=== PATIENT | female | born 2000 | race Caucasian/White ===

== ENCOUNTER 2021-07-06 09:56 | Outpatient (RCR) | payer OTHER, SELFPAY ==
--- NOTE | 2021-07-06 09:10 | BH.SGPN.GN ---
Behaviors/Verbalizations/Mental Status: [] Eye contact is good. Motor activity is appropriate. Appearance is casual. Speech is Appropriate. Mood is anxious. Affect is congruent. Thoughts are linear and logical. No evidence of psychosis. Reviewed daily check in sheet and no reports of suicidal ideations or intent. Client Response/Progress/Benefit: [] Pt was an active participant in group discussion on CBT techniques. Attentive. Emotion for today is anxious. Shared that this was her first day in [facility] level of care and shared that her anxiety has greatly impacted her functioning. Reports significant somatic symptoms as the result of her anxiety (nausea, vomiting) which have led to isolation and avoidance of work/school. Her goals are to reduce her anxiety. Wants to learn more effective ways to manage depression/anxiety so she can get back to functioning at baseline. No progress noted as this was pt's first day. Will continue in [facility] to increase healthy coping skills and improve functioing. Narrative Note: []
--- NOTE | 2021-07-06 10:05 | BH.SGPN.GN ---
Behaviors/Verbalizations/Mental Status: []Client alert and oriented, casually dressed and grooming appears tended to. Eye contact good. Motor activity appropriate. Speech within normal limits. Affect congruent, mood anxious. Thoughts linear, logical, no signs of hallucinations or delusions. Client Response/Progress/Benefit: []Pt new to IOP program. Did well to remain engaged throughout AEB taking notes, listening attentively, and providing input throughout. Attentive during psychoeducation and discussed the importance of goal-setting with the group. Pt indicated that goals ?help to motivate you and give toy something to do with your time?. Group identified potential benefits of having goals to include: they motivate, increase self-confidence, provide a sense of accomplishment, help improve relationships, and provide a sense of purpose. Group also worked together to identify barriers to goal-setting which included; fear of failure, lack of motivation/procrastination, depression, and lack of support from others. Pt identified personal barriers to include anxiety and fear of failure. Benefited from increased awareness of benefits and barriers to goal-setting. Pt will continue in IOP to prevent decompensation, increase healthy coping and stabilize anxiety, as well as further improve daily functioning. Narrative Note: []
--- NOTE | 2021-07-06 11:08 | BH.SGPN.GN ---
Behaviors/Verbalizations/Mental Status: []Client alert and oriented, casually dressed and groomed. Eye contact good. Motor activity appropriate. Speech within normal limits. Affect congruent, mood anxious. Thoughts linear, logical, no signs of hallucinations or delusions. Client Response/Progress/Benefit: []Pt was an active participant in group discussions and activities. Engaged in activity. Pt identified a SMART goal for the next week is to: Start each day identifying positive thoughts over the next week. Pt reported this would benefit her by improving her mood, improving motivation, and lessening her anxiety. Identified stomach ache and waking up earlier than planned as potential barriers to completing this goal. Pt able to identify several solutions, such as thought challenging, not allowing herself to dwell, and starting the day earlier, that can help overcome identified barriers. Benefited from group by being able to utilize SMART educate to create a goal. Pt to continue IOP to increase healthy coping skills, challenge distorted and negative thoughts and prevent decompensation. Narrative Note: []
--- NOTE | 2021-07-06 15:49 | BH.COMM_ITS ---
Communication Note - Communication with Client Communication Note: Met with pt to complete initial paperwork. No significant changes since pre-admission screening. Completed [facility]. Pt presents as low risk. Pt denies any active suicidal ideations, plan, or intent as of 07/06/21. Pt denies history of self-injurious or high risk behaviors. Pt denies any history of prior suicide attempts. Pt admits to having thoughts of going to slep and not waking up but denies passive SI. Denies any hx or current HI, delusions, or hallucinations. No access to weapons or other lethal means. Future oriented and reports ability to maintain safety. Does not present as imminent risk due to no active SI, plan, or intent. Case reviewed with program psychiatrist and team, agreed pt will be admitted to IOP program under the Generalized Anxiety Disorder diagnosis, F41.1
--- NOTE | 2021-07-07 09:05 | BH.SGPN.GN ---
Behaviors/Verbalizations/Mental Status: [] Eye contact is good. Motor activity is appropriate. Appearance is casual. Speech is Appropriate. Mood is anxious. Affect is congruent. Thoughts are linear and logical. No evidence of psychosis. Reviewed daily check in sheet and no reports of suicidal ideations or intent. Client Response/Progress/Benefit: [] Pt participated at times during the group discussion. Attentive. She reports mental health wins revolving around improve sleep this week. States that she actually slept until my alarm went off. Shared that in the past she would wake up hours before the alarm with significant anxiety that would result in somatic symptoms. She believes that her anxiety has improved in the past couple days for unknown reasons. Her primary stressor is financial concerns. Had a very brief check-in. Progress noted per patient report. Benefited from group support and encouragement. Will continue in IOP to prevent decompensation, decrease anxiety, and improve functioning. Narrative Note: []
--- NOTE | 2021-07-07 10:10 | BH.SGPN.GN ---
Behaviors/Verbalizations/Mental Status: [] Eye contact is good. Motor activity is appropriate. Appearance is casual. Speech is Appropriate. Mood is anxious. Affect is congruent. Thoughts are linear and logical. No evidence of psychosis. Client Response/Progress/Benefit: [] Pt was an active participant in group discussions. Attentive during psycho-education on 4 types of conflict styles (Competing, Collaborating, Avoiding, and Accommodating). Worked with group to define conflict and identify how conflict is helpful. With peers identified barriers to addressing or managing conflict which included: fear of upsetting others, embarrassing self, abandonment, past negative experiences with conflict, and shutting down. Pt believes her conflict style changes with the situation as she avoidant in relationships and competing when it comes to siblings. Benefited from group due to increase insight and awareness of conflict, conflict styles, and obstacles to managing conflict. Will continue in IOP to decrease impact of anxiety of functioning and increase healthy coping. Narrative Note: []
--- NOTE | 2021-07-08 09:00 | BH.SGPN.GN ---
Behaviors/Verbalizations/Mental Status: [] Eye contact is good. Motor activity is appropriate. Appearance is casual. Speech is Appropriate. Mood is anxious. Affect is constricted. Thoughts are linear and logical. No evidence of psychosis. Reviewed daily check in sheet and no reports of suicidal ideations or intent. Client Response/Progress/Benefit: [] Pt was an active participant in group discussion. Attentive. Provided appropriate feedback. Mental health win as sleeping until her alarm and waking up not feeling nauseas or sick. Pt stated she also woke up today not feeling sick. 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 Pt stated planning ahead helped her decrease her anxiety. Reported current stressor is high gas prices because she has to drive an hour to treatment which has been adding up. Emotion is tired. Benefited from group support, encouragement, and feedback. Will continue in IOP to improve daily functioning, increase healthy coping and prevent decompensation.
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
--- NOTE | 2021-07-08 11:08 | BH.SGPN.GN ---
Behaviors/Verbalizations/Mental Status: []Pt alert and oriented, casually dressed and groomed. Eye contact good. Motor activity appropriate. Speech within normal limits. Affect constricted, mood anxious and dysthymic. Thoughts linear, logical, no signs of hallucinations or delusions. Client Response/Progress/Benefit: []Pt responded well to session, engaged in the experiential activity and attentive throughout group processing. Pt reported fear of failure has kept pt from asking for help, school, and making new friendships. Pt completed fear of failure worksheet and was able to identify thoughts and behaviors that reinforce personal fear of failure including fear of being uncomfortable, second guessing, wanting to be the best, and social media. Pt participated in small group discussion regarding strategies to overcome fear of failure. Identified wanting to work on sticking with a schedule and thinking through solutions if her goal ?fails.? Appeared to benefit from increased knowledge of strategies to combat fear of failure and gaining self-awareness. Pt will continue IOP tx to prevent decompensation, improve daily functioning, and reduce somatic symptoms of anxiety. Narrative Note: []
[2021-07-08 11:27] VITALS: BP 124/74; PULSE 61
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
--- NOTE | 2021-07-08 12:37 | BH.DR.ITP ---
Initial Treatment Plan Patient Information Visit Information: ADMISSION DATE: EXPECTED LOS: 4-6 weeks Problems/Symptoms Problem #1:: Anxiety Symptom:: Worry, rumination, avoidance, panic attacks, numerous somatic symptoms Problem #2:: Depression Symptom:: Sadness, hopelessness, worthlessness, isolation, decreased concentration, passive thoughts of
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
--- NOTE | 2021-07-13 09:01 | BH.SGPN.GN ---
Behaviors/Verbalizations/Mental Status: [] Eye contact is good. Motor activity is appropriate. Appearance is casual. Speech is Appropriate. Mood is euthymic, slightly anxious. Affect is constricted. Thoughts are linear and logical. No evidence of psychosis. Reviewed daily check in sheet and no reports of suicidal ideations or intent. Client Response/Progress/Benefit: [] Pt was an active participant in group discussion. Attentive. Provided appropriate feedback. Pt reported mental health positive as being able to enjoy self when went with boyfriend to a birthday democrat. Pt stated additional mental health positive as randomly choosing to mow her parents yard which is the first time she's ever mowed. Pt reported she found it helpful to be outside and accomplish something. 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 Pt reported used thought challenge to help her be productive versus laying around all day. Benefited from group support, encouragement, and feedback. Will continue in IOP to continue use of healthy coping skills, challenge negative thinking and prevent decompensation.
--- NOTE | 2021-07-13 11:10 | BH.SGPN.GN ---
Behaviors/Verbalizations/Mental Status: []Client alert and oriented, casually dressed and groomed. Eye contact fair to good. Motor activity appropriate. Speech within normal limits. Affect constricted, mood anxious and depressed. Thoughts linear, logical, no signs of hallucinations or delusions. Client Response/Progress/Benefit: []Pt responded well to session AEB taking notes and providing input and examples throughout. Group discussed the different categories of coping skills which included distraction, emotional release, grounding, self-love, and thought challenging. Pt created a coping skill menu identifying various skills to try in each category. Pt?s coping skill menu included: cleaning with limits, exercising, meditation, reducing over-apologizing, and opposite action. Appeared to benefit from increasing repertoire of healthy coping skills. Pt reports enjoying time with supports this weekend which is progress. Pt will continue IOP tx to reduce anxiety, improve daily functioning and increase self-confidence. Narrative Note: []
--- NOTE | 2021-07-14 10:12 | BH.SGPN.GN ---
Behaviors/Verbalizations/Mental Status: []Client alert and oriented, casually dressed and groomed. Eye contact good. Motor activity appropriate. Speech within normal limits. Affect congruent, mood anxious. Thoughts linear, logical, no signs of hallucinations or delusions. Client Response/Progress/Benefit: []Client responded well to session AEB client listening attentively to others and taking notes. Client was engaged throughout discussion introducing the topic of self care and its importance. Group identified myths about self care, such as self care is selfish, self-indulgent, takes too much time, has to be fun, and has to be earned. Client discussed myth of self care being selfish, stating that at times we need to be selfish for our own mental health wellness. Identified reframing self-care as necessary versus selfish. Contributed ideas as group identified self-care benefits to include: improved mood, reduce stress, increased resilience, and help maintain stability. Client appeared to benefit from increased knowledge of the importance and benefits of self care. Will continue IOP treatment to increase social connection to supports and decrease feelings of hopelessness.
--- NOTE | 2021-07-14 11:20 | BH.SGPN.GN ---
Behaviors/Verbalizations/Mental Status: []Client alert and oriented, casually dressed and groomed. Eye contact good. Motor activity appropriate. Speech within normal limits. Affect congruent, mood anxious. Thoughts linear, logical, no signs of hallucinations or delusions. Client Response/Progress/Benefit: []Client engaged participant AEB completing self-assessment worksheet and contributing input during discussion. Participated throughout group discussion on the various areas of self-care, benefits, and types of self-care activities for each area. Client completed worksheet which identified current self-care practices and what self-care activities client wants to start using. Client selected emotional and spiritual self-care as areas to begin practicing more consistently. Client plans to do this by getting into more consistent journaling, opening up to supports about her mood, as well as practicing self-validation. Client reports doing well with financial self-care and would like to continue to focus on maintaining self-care in this area by consistently checking her account balances. Appeared to benefit from completing the self-care evaluation and gaining insights into current self-care practices, as well as identifying areas in which she would like to improve upon. Will continue IOP tx to continue to promote mood stability, improve depression and anxiety management and consistent skill application, as well as prevent decompensation. Narrative Note: []
--- NOTE | 2021-07-15 09:00 | BH.SGPN.GN ---
Behaviors/Verbalizations/Mental Status: []Pt alert and oriented, casually dressed and groomed. Eye contact good. Motor activity appropriate. Speech within normal limits. Affect congruent, mood euthymic. Thoughts linear, logical, no signs of hallucinations or delusions. Reviewed pt?s symptom tracker, no risk for suicidal ideation, plan, or intent as of 07/15/21 Client Response/Progress/Benefit: P[]Pt responded well to session, attentive and providing emotional support. Pt reports feeling hopeful this morning as pt has noticed she has been nauseous, but not as bad and pt has been able to gt through her nausea more effectively. Pt shared she work up sick, but pt was able to use opposite action and positive self-talk to prevent vomiting. Pt got pulled over yesterday after leaving IOP which was a positive and a stressor per pt's report. Pt stated she was able to use the stressor to motivate pt to make positive choices the rest of the day. Appeared to benefit from reflecting on application of coping skills. Pt will continue IOP tx to promote mood stability, reduce somatic symptoms, and increase overall functioning. Narrative Note: []
--- NOTE | 2021-07-15 09:00 | BH.COMM ---
Communication Note - Communication with Client Communication Note: Pt requested not to meet with program psychiatrist for follow-up while in IOP as she is linked with outpatient psychiatrist and does not feel the need to have two psychiatrists. We will respect her wishes.
--- NOTE | 2021-07-15 11:10 | BH.SGPN.GN ---
Behaviors/Verbalizations/Mental Status: [] Eye contact is good. Motor activity is appropriate. Appearance is casual. Speech is Appropriate. Mood is euthymic. Affect is full. Thoughts are linear and logical. No evidence of psychosis Client Response/Progress/Benefit: [] Pt participated at times during group discussions. Attentive during psychoeducation on the 4 A's of Coping with Stress (Avoid, Alter, Adapt, Accept). Participated in experiential activity in which group members had to utilize stress management skills in the moment. Pt agreed with group consensus that activity caused her to be frustrated, tense, and anxious. She shared skills that she utilized in the moment to continue with group activity. Pt identified a stressor to focus on which was waking up on time in the mornings and choose to utilize alter as a coping skills. Plans to alter her night time routine to get better sleep. Benefited from processing in the moment stress management strategies and identifying new ways to cope with stress. Will continue in IOP to prevent decompensation, increase health coping skills to manage anxiety, and to improve functioing. Narrative Note: []
--- NOTE | 2021-07-15 14:01 | BH.MDN ---
Multi-Disciplinary Note - Note 45-min Individual Time Started:: 12:05 Date: 07/15/21 Purpose of session/treatment goals addressed:: To work on goal #1 of pt's treatment plan. Focusing on triggers for health related anxiety. Eye Contact:: Good Motor Activity:: Appropriate Appearance:: Casual Speech:: Appropriate Mood:: Anxious, Dysthymic Affect:: Congruent Thoughts:: Linear, Logical, No evidence of hallucinations/delusions noted Staff Interventions:: thought challenging, psychoeducation on: - health anxiety, CBT techniques, other - gave pt a worksheet for homework. Client Response:: Pt responded well to session, open to meeting with therapist. Pt shared yesterday she woke up sick, but pushed herself to come to IOP anyway. 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 Pt laughed and shared this was actually a good thing because it helped pt break the cycle. Pt connected with the discussion of health anxiety and shared I have to have that because they run tests and never find anything. Pt reports this is frustrating for her because it results in answer seeking and negative self-talk. Pt connected with the health anxiety worksheets and identified her internal and external triggers. Triggers included: shaking when cold, cramps, loneliness, stomach aches, worrying about not making it to the bathroom, noses her boyfriend makes, plans getting cancelled, and learning about other people's medical diagnoses. Pt stated she feels more ready to work on breaking the cycle of anxiety by changing behaviors first. Pt recognizes her negative thought patterns will be harder to change. Pt given a worksheet for homework to identify her safety/avoidance behaviors. Risks/Concerns:: Pt denies any active suicidal ideations, plan, or intent as of 07/15/21. Pt is future oriented and has multiple protective factors. Progress Toward Goals/Plan:: Pt is responding well to IOP tx and reports benefitting from the group setting. Pt is showing mild progress as it is still early in pt's treatment. Pt has increased insight to her triggers and maintenance cycles. Pt continues to experience severe anxiety, somatic symptoms, avoidance, and anxious thought patterns. Pt reports she is focusing on using more opposite action which is progress. Pt will continue IOP tx to prevent decompensation, reduce avoidance, and improve daily functioning impaired by anxiety. Time Stopped:: 12:48
--- NOTE | 2021-07-21 09:00 | BH.SGPN.GN ---
Behaviors/Verbalizations/Mental Status: [] Eye contact is good. Motor activity is appropriate. Appearance is casual. Speech is Appropriate. Mood is depressed. Affect is flat. Thoughts are linear and logical. No evidence of psychosis. Reviewed daily check in sheet and no reports of suicidal ideations or intent. Client Response/Progress/Benefit: [] Pt participated at times during the group discussions. Attentive. Tearful at times. Shared with the group anxiety and somatic symptoms over the weekend which has led to ruminations and fear. She is fearful that her anxiety will return to the severity it had been resulting in increased nausea and vomiting. Difficulty not focusing on negative automatic thoughts which is increasing anxiety and depression. Group empathized and provided feedback which was beneficial. Group was able to reframe her thoughts and challenge her cognitive distortions. Normalized her anxiety response and provided alternative thoughts to combat her negative thoughts. Pt reports regression. Will continue in IOP to prevent decompensation, increase healthy coping skills, and improve functioning. Narrative Note: []
--- NOTE | 2021-07-21 11:15 | BH.SGPN.GN ---
Behaviors/Verbalizations/Mental Status: []Client alert and oriented, casually dressed and groomed. Eye contact good. Motor activity appropriate. Speech within normal limits. Affect congruent, mood euthymic. Thoughts linear, logical, no signs of hallucinations or delusions. Client Response/Progress/Benefit: []Client responded well to session, attentive. Did well to process activity and work with group to relate the strategies used to overcome barriers in the activity to managing change in own life. Client identified a change they would like to make is eating more consistently throughout the day. Client stated currently in preparation stage for identified change. Client reported goal si to have small snack with her each day to have when her alarm goes off to remind her to eat. Appeared to benefit from identifying a small goal to work towards. Client will continue IOP tx to prevent decompensation, gain healthy coping skills, and improve daily functioning.
--- NOTE | 2021-07-21 11:24 | BH.MDN_ITS ---
Multi-Disciplinary Note - Note 45-min Individual Time Started:: 10:20 Date: 07/21/21 Purpose of session/treatment goals addressed:: To work on goal #1 of pt's tx plan. To increase self-awareness and identify tangible goals. Eye Contact:: Good Motor Activity:: Appropriate Appearance:: Casual Speech:: Soft Mood:: Anxious Affect:: Congruent Thoughts:: Linear, Logical, No evidence of hallucinations/delusions noted Staff Interventions:: thought challenging, CBT techniques, mindfulness skills, strengths perspective, goal setting - goal to not research physical symptoms for the next three days Client Response:: Pt responded well to session, open to meeting with therapist. Pt processed stressors from the weekend which included a very stressful day of babysitting, a setback with getting sick, and ruminating about these. Pt rec eptive to gentle thought challenging and discussion of self-compassion. Pt acknowledged that she personalizes situations that are out of her control which reinforces rumination. Pt able to reflect on her recent episode of sickness with a more compassionate lens and remind herself that she did have more good moments than usual this weekend. Pt completed homework from last session. Pt identified her safety behaviors that reinforce health anxiety which included: avoiding eating, avoiding certain foods, avoidance of certain places and going out, googling and researching symptoms, and avoiding certain friends. Pt recognizes that her avoidance is due to fear that she will get sick or not be able to make it to a restroom. Pt willing to work on a goal to reduce reassurance seeking through not googling for the next three days. Pt also set a goal to eat at least one snack a day as pt is currently only eating once which is likely contributing to her nausea. Pt set an alarm to remind herself to eat a snack today and pt plans to bring her own snacks to IOP. Risks/Concerns:: Pt denies any suicidal ideations, plan, or intent as of 07/21/21. Pt is future oriented and motivated. Progress Toward Goals/Plan:: Pt continues to respond well to IOP tx AEB consistent attendance and engagement. Pt reports working on goals outside of IOP setting. Pt reported getting sick one day over the weekend which pt is ruminating about, however progress noted in reduced frequency of vomiting. Pt also reports improved ability to bounce back from this. Pt continues to be receptive to learning about her health anxiety, safety behaviors, and thoughts. Pt will continue IOP tx to promote mood stability, reduce safety behaviors, and improve daily functioning. Time Stopped:: 11:10
== END 2021-07-21 23:59 ==
LOC: BHIOP 09:56
PROVIDERS: Referring Provider Psychiatry & Neurology Psychiatry; Visit Provider Psychiatry & Neurology Psychiatry
DX: F33.2 Major depressive disorder, recurrent severe without psychotic features (principal); F41.1 Generalized anxiety disorder; F45.1 Undifferentiated somatoform disorder; F12.99 Cannabis use, unspecified with unspecified cannabis-induced disorder; Z79.899 Other long term (current) drug therapy
CPT/HCPCS: S9480; 90832; 90834; 90853

== ENCOUNTER 2021-07-22 07:25 | Outpatient (RCR) | payer OTHER, SELFPAY ==
[2021-07-22 01:16] VITALS: BP 124/74; PULSE 61
--- NOTE | 2021-07-22 10:13 | BH.SGPN.GN ---
Behaviors/Verbalizations/Mental Status: []Client alert and oriented, casually dressed and groomed. Eye contact good. Motor activity appropriate. Speech within normal limits. Affect congruent, mood anxious and euthymic. Thoughts linear, logical, no signs of hallucinations or delusions. Client Response/Progress/Benefit: []Client responded well to session AEB sharing and listening attentively to others. Client participated in activity illustrating how perspective affects mental health. Client participated in group discussion on what shapes our perspective, contributing past experiences and other?s opinions as examples. Client appeared connected to psychoeducation on how our thoughts and attitude can become ?lenses? that we see the world through. Participated in group discussion reviewing how these lenses affect mental health treatment, stating that a negative perspective could cause someone to not try as hard in treatment. Shared her current perspective as positive or more ?balanced? and that this has aided in improving her ability to feel overall more in control of her mental health and ability to manage current sx. Client appeared to benefit from increased knowledge of perspective and how mental health can impact or be impacted by one?s perspective. Will continue IOP treatment to improve anxiety management skills, reduce safety behaviors, and improve overall mood stability. Narrative Note: []
--- NOTE | 2021-07-22 11:15 | BH.SGPN.GN ---
Behaviors/Verbalizations/Mental Status: []Pt alert and oriented, casually dressed and groomed. Eye contact good. Motor activity appropriate. Speech within normal limits. Affect congruent, mood euthymic and anxious. Thoughts linear, logical, no signs of hallucinations or delusions. Client Response/Progress/Benefit: []Pt was attentive and contributed in small and larger group discussion. Pt completed strengths exploration worksheet and identified personal strengths to include: leadership, social awareness, intelligence, humor, and ambition. Pt shared that working to recognize these personal strengths more consistently will help improve pt?s mood and increase self-worth. Shared wanting to focus on fostering personal strengths by reminding herself of her strengths through her actions. Also identified barriers for acknowledging and using strengths. Benefited from identifying personal strengths and strategies for enhancing use of identified strengths. Pt to continue IOP tx to reduce somatic symptoms, increase anxiety-management skills, and improve overall functioning. Narrative Note: []
--- NOTE | 2021-07-23 09:05 | BH.SGPN.GN ---
Behaviors/Verbalizations/Mental Status: []Pt alert and oriented, casually dressed and groomed. Eye contact good. Motor activity appropriate. Speech within normal limits. Affect constricted, mood euthymic. Thoughts linear, logical, no signs of hallucinations or delusions. Reviewed pt?s symptom tracker, no risk for suicidal ideation, plan, or intent as of 07/23/21 Client Response/Progress/Benefit: [] Pt responded well to session, providing supportive statements. Pt reports feeling optimistic this morning as pt has been feeling less nauseous and has increased ability to manage her anxiety. Pt is looking forward to spending time with her boyfriend this weekend. 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 Pt appeared to benefit from giving support to peers and reflecting on her progress. Pt will continue IOP tx to further decrease anxiety symptoms, improve distress tolerance, and increase self-compassion. Narrative Note: []
--- NOTE | 2021-07-23 10:20 | BH.SGPN.GN ---
Behaviors/Verbalizations/Mental Status: []Pt alert and oriented, casually dressed and groomed. Eye contact good. Motor activity appropriate. Speech within normal limits. Affect congruent, mood euthymic. Thoughts linear, logical, no signs of hallucinations or delusions. Client Response/Progress/Benefit: [] Pt responded well to session AEB contributing to discussion, taking notes, and listening attentively to others. Group discussed the benefits of managed anger and anger as a secondary emotion. Pt completed anger iceberg worksheet, reporting outward personal signs of anger as sarcasm, sleeping, and lashing out. Identified underlying emotions that contribute to anger including change, lack of sleep, and feeling overwhelmed. Appeared to benefit from increased knowledge of the underlying emotions that impact anger and increased self-awareness of the internal and external consequences of anger. Will continue IOP tx to prevent decompensation, continue to improve anxiety management, as well as increase the use of healthy coping skills and thought challenging. Narrative Note: []
--- NOTE | 2021-07-27 10:10 | BH.SGPN.GN ---
Behaviors/Verbalizations/Mental Status: []Eye contact is good. Motor activity is appropriate. Appearance is casual and grooming tended to. Speech is Appropriate. Mood is anxious and euthymic. Affect is constricted. Thoughts are linear and logical. No evidence of psychosis Client Response/Progress/Benefit: []Pt receptive of session, actively engaged throughout AEB taking notes and providing input and examples to discussion. Appeared to connect with group topic of cognitive distortions and the impact of thought patterns on mental health, coping behaviors, and relationships. Reflected that she personally tends to struggle with distortions of mental filtering, personalizing, and catastrophizing. Pt reports when she has distorted thinking pt becomes discouraged and only looks at what she did not do. Pt appeared to benefit from gaining insight on distorted thinking patterns and how this impacts overall mental health. Progress noted in pt report of improved insight and ability to combat distortions with alternative positive thoughts. Will continue IOP tx to further improve mood stability, reduce anxiety and avoidance, and increase self-confidence. Narrative Note: []
--- NOTE | 2021-07-28 09:00 | BH.SGPN.GN ---
Behaviors/Verbalizations/Mental Status: [] Client alert and oriented, casually dressed and groomed. Eye contact good. Motor activity appropriate. Speech within normal limits. Affect constricted, mood anxious. Thoughts linear, logical, no signs of hallucinations or delusions. Reviewed client?s symptom tracker, no risk for suicidal ideation, plan, or intent as of 07/28/21 Client Response/Progress/Benefit: [] Client responded well to group by actively participating throughout group. Reported that her emotions were irritated and tired. Client gave examples that she felt increased stress from babysitting, but felt it was an overall win with being able to control herself and not let her anger take over. Client indicated how she is finding it difficult to relax at the end of the day with lacking self car until going to bed. Client seemed to benefit from feedback from group members on techniques to invoke relaxation.She will continue IOP tx to increase coping skills, reduced irritability, and increase overall functioning. Narrative Note: []
--- NOTE | 2021-07-28 14:30 | BH.MDN ---
Multi-Disciplinary Note - Note 45-min Individual Time Started:: 12:15 Date: 07/28/21 Purpose of session/treatment goals addressed:: To review progress made in IOP tx, address current stressors, and review new strategies to cope with health anxiety. Eye Contact:: Good Motor Activity:: Appropriate Appearance:: Casual Speech:: Appropriate Mood:: Euthymic Affect:: Congruent Thoughts:: Linear, Logical, No evidence of hallucinations/delusions noted Staff Interventions:: thought challenging, CBT techniques, strengths perspective, reviewed DSM-5, goal setting - goals related to reducing safety behaviors., other - Reviewed health rules and assumptions that reinforce health anxiety and helped pt identify new rules. Client Response:: Pt responded well to session, reports feeling better overall. 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 Pt self-reports utilizing coping skills outside of IOP and pt has been consistent with completing her homework. Pt receptive to learning about health rules today and pt identified her existing rules. Pt's current rules are any stomach ache is not normal, any aliment is something bad, and I must be symptom free to be healthy. Pt recognizes these lead to hyperfocusing on body, catastrophizing, and avoidance. Pt created more flexible health rules she wants to work on believing. Pt also set goals for herself to do something out of the house with her boyfriend once a week, talk to her friends at least once a week, and reduce one of her safety behaviors. Pt reported last week she wanted to engage in reassurance seeking by researching, but pt stopped herself which is progress. Risks/Concerns:: Pt denies any suicidal ideations, plan, or intent as of 07/28/21. Pt denies any HI. Progress Toward Goals/Plan:: Pt is progressing well in IOP AEB her reduced DSM-5 scores for anxiety, depression, and overall. Pt self-reports feeling less anxiety for a shorter period of time, less vomiting, improved outlook, less avoidance, and catching negative thinking. Pt is worried about maintenance and fears leaving IOP tx. Pt is also stressed about figuring out her next steps in life. Pt continues to endorse ruminations, some somatic symptoms, safety behaviors, and moderate depressive and anxiety symptoms. Pt will continue IOP tx to promote gains, further decrease health anxiety and safety behaviors, and improve overall functioning. Time Stopped:: 12:55
--- NOTE | 2021-07-28 14:37 | BH.TPR ---
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 Pt contributes well during individual sessions and actively contributes during group sessions. Pt applies coping skills outside of IOP and reports overall mood is improved and pt is doing better at managing somatic symptoms. Status of Current Problems and Symptoms: Pt's symptoms are still present, but resolving. Pt's overall DSM-5 scores have decreased by 26% since admission, but pt is still scoring moderate/ borderline severe for anxiety and depression. Pt expresses worries about maintenance and pt continues to struggle managing her health anxiety at times. Pt's main stressor right now is figuring out what she wants to do after IOP (school, work, etc). Pt also continues to smoke marijuana daily, however, pt does not report marijuana exacerbates symptoms. Problem #1 Problem Name:: health anxiety, somatic symptoms, and ruminations Status of Goals:: Objective 1-complete with ongoing work encouraged. Pt can identify triggers for anxiety and somatic symptoms. Pt reports reduced nausea and vomiting as well as increase ability to manage triggers. Pt is responding well to the health-anxiety techniques pt learns in session. Pt's DSM-5 scores for anxiety decreased by 33% since admission. Objective 2- in progress. Pt is currently working on creating new health ?rules? or assumptions. Pt has developed more flexible health ?rules? and is trying to implement these. Team Recommendations:: Treatment team recommends that pt continue working on implementing healthy coping skills on a consistent basis to promote gains. It is also recommended that pt continue working on reducing safety behaviors. Problem #2 Problem Name:: depression, lack of motivation, passive thoughts of Status of Goals:: Objective 1-complete with ongoing work encouraged. Pt?s DSM-5 scores for depression decreased by 29% since admission. Pt can identify healthy coping skills including opposite action, thought challenging, and self-care. Objective 2- in progress. Pt is gaining more awareness of cognitive distortions and the messages she tells herself. Working on reframing personalization and increasing self-compassion. Team Recommendations:: Treatment team recommends pt continue working on combatting distortions such as personalization and disqualifying the positives. Also encourage pt to continue working on self-compassion to help pt figure out her next steps in life.
--- NOTE | 2021-07-29 10:13 | BH.SGPN.GN ---
Behaviors/Verbalizations/Mental Status: []Eye contact is good. Motor activity is appropriate. Appearance is casual. Speech is Appropriate. Mood is anxious and euthymic. Affect is congruent. Thoughts are linear and logical. No evidence of psychosis. Client Response/Progress/Benefit: []Pt connected with topic of Anxiety and participated throughout, providing input and taking notes. Attentive during psychoeducation on different anxiety disorders and participated throughout interactive discussion defining anxiety and identifying cognitive and physiological symptoms of anxiety. Pt stated ?anxiety can seem like a bad thing even if it isn?t always?. Common cognitive symptoms identified by group included: ?what if thoughts?, ?fear of failure?, and predicting the future type thoughts. Physiological symptoms reported by patient included: nausea, tingling, and headache. Benefited from increased awareness and insight on anxiety and its impact. Plan is to continue in IOP to maintain mood stability, increase consistency of healthy coping for anxiety, and prevent decompensation. Narrative Note: []
--- NOTE | 2021-07-30 09:00 | BH.SGPN.GN ---
Behaviors/Verbalizations/Mental Status: []Pt alert and oriented, neatly dressed and groomed. Eye contact good. Motor activity appropriate. Speech within normal limits. Affect constricted, mood tired but optimistic. Thoughts linear, logical, no signs of hallucinations or delusions. Reviewed pt?s symptom tracker, no risk for suicidal ideation, plan, or intent as of 07/30/21 Client Response/Progress/Benefit: []Pt responded well to session, offering supportive feedback. Pt reports feeling optimistic and also sad this morning as pt has been doing well, but recently pt reflected on her decision to withdraw from [employer] which made pt feel disappointed. Pt receptive to feedback from banking officer and peers. 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 Pt reported by setting these boundaries, pt was able to engage in much needed self-care yesterday. Pt's stressor today is I still don't know what to do after this...like with school. Pt appeared to benefit from reflecting on boundary setting and receiving support. Pt will continue IOP tx to promote gains, further decrease anxiety, and increase self-confidence. Narrative Note: []
--- NOTE | 2021-08-03 09:00 | BH.SGPN.GN ---
Behaviors/Verbalizations/Mental Status: []Pt alert and oriented, casually dressed and groomed. Eye contact good. Motor activity appropriate. Speech within normal limits. Affect congruent, mood anxious and relieved. Thoughts linear, logical, no signs of hallucinations or delusions. Reviewed pt?s symptom tracker, no risk for suicidal ideation, plan, or intent as of 08/03/21 Client Response/Progress/Benefit: [] Pt responded well to session, providing supportive statements. Pt reports feeling anxious and relieved this morning as pt had a scare with a speeding ticket, but it is resolved now. Pt shared in the past she would have gotten sick and isolated due to the anxiety of the situation, but now pt is able to handle her anxiety. Pt stated she has been more social in general which has improved her mood and reduced intrusive thoughts about getting sick. Pt's stressor today is that she does not know what she wants to do regarding choosing a college. Pt appeared to benefit from group support and feedback. Will continue IOP tx to promote gains, further reduce anxiety, and increase self-confidence. Narrative Note: []
--- NOTE | 2021-08-03 10:00 | BH.SGPN.GN ---
Behaviors/Verbalizations/Mental Status: [] Eye contact is good. Motor activity is appropriate. Appearance is casual. Speech is Appropriate. Mood is euthymic. Affect is full. Thoughts are linear and logical. No evidence of psychosis. Client Response/Progress/Benefit: [] Pt was an active participant during interactive group discussions. Attentive during psychoeducation on the six types of boundaries (physical, emotional, intellectual, sexual, time, and material) AEB note-taking. Along with peers contributed to interactive discussion on defining what a boundary is in mental health. Pt along with peers identified challenges to setting boundaries which included; fear of other's response, guilt, fear of rejection, fear of disappointing the other person, feeling like one is unworthy to set boundaries, etc. Pt along with peers identified the benefits to setting boundaries such as increased control, decreased stress, increased time for self-care, and increased confidence. Group discussed the mental health benefits to establishing boundaries at work, school, and home. Pt benefited from increased awareness and insight on the importance/benefit to setting health boundaries. Will continue in IOP to prevent decompensation, improve functioning, and increase healthy coping. Narrative Note: []
--- NOTE | 2021-08-03 11:05 | BH.SGPN.GN ---
Behaviors/Verbalizations/Mental Status: []Client alert and oriented, casually dressed and appropriately groomed. Eye contact good. Motor activity WNL.? Speech within normal limits. Affect congruent, mood anxious and euthymic. Thoughts linear and intact. no signs of delusions or hallucinations. Client Response/Progress/Benefit: []Client responded well to session AEB listening attentively to peers, providing input and examples, as well as taking notes throughout. Client contributed throughout psychoeducation on different boundary setting styles. Reports connecting most with rigid style of boundary setting, identifying difficulties letting others in or communicating when she is upset. Participated in small group discussion brainstorming various strategies for improving healthy boundary setting. Client reports wanting to begin using skill of ?being more assertive about her needs and not trying to over explain when needing to say ?no? to something to improve overall ability to establish and maintain healthy boundaries. Seemed to benefit from increased awareness of how different boundary styles can impact mental health. Will continue IOP tx to increase consistent application of skills, increase anxiety management, and prevent decompensation. Narrative Note: []
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
--- NOTE | 2021-08-05 10:10 | BH.SGPN.GN ---
Behaviors/Verbalizations/Mental Status: []Pt alert and oriented, casually dressed and groomed. Eye contact good. Motor activity appropriate. Speech within normal limits. Affect constricted, mood dysthymic. Thoughts linear, logical, no signs of hallucinations or delusions. Client Response/Progress/Benefit: []Pt engaged during session AEB Pt contributing thoughts throughout discussion and completing worksheet. Connected with discussion on crisis and how coping with external crises by using unhealthy coping skills could result in a personal crisis. Group reflected on the importance of having awareness of personal warning signs to prevent reaching crisis point. Group identified potential warning signs for crisis and Pt completed the personal warning signs worksheet. Pt identified personal crisis warning signs to include: isolation, avoidance, and apathy. Pt benefited by increasing awareness of what leads to crisis and personal warning signs. Pt will continue IOP tx to improve management of health anxiety, promote gains, and further decrease safety behaviors. Narrative Note: []
--- NOTE | 2021-08-06 09:00 | BH.SGPN.GN ---
Behaviors/Verbalizations/Mental Status: []Pt alert and oriented, casually dressed and groomed. Eye contact good. Motor activity appropriate. Speech within normal limits. Affect constricted, mood overwhelmed. Thoughts linear, logical, no signs of hallucinations or delusions. Reviewed pt?s symptom tracker, no risk for suicidal ideation, plan, or intent as of 08/06/21 Client Response/Progress/Benefit: [] pt responded well to session, receptive to feedback from peers. Pt reports feeling overwhelmed this morning as pt officially has left [employer] and feels sad and anxious about this and what is next. Pt will meet with individual therapist today and talk about this more. Pt shared she has been improving with advocating for herself and utilizing self-care. Pt also has not gotten sick for over a week and her somatic symptoms have significantly reduced. Pt appeared to benefit from group support and feedback. Pt will continue IOP tx to promote resilience, increase self-compassion, and reduce anxious thinking patterns. Narrative Note: []
--- NOTE | 2021-08-07 14:37 | BH.MDN_ITS ---
Multi-Disciplinary Note - Note 45-min Individual Time Started:: 11:30 Date: 08/06/21 Purpose of session/treatment goals addressed:: To reduce anxiety about pt's future through cost/benefit analysis and problem-solving solutions. Eye Contact:: Good Motor Activity:: Appropriate Appearance:: Casual Speech:: Soft Mood:: Anxious, Dysthymic Affect:: Congruent - tearful Thoughts:: Racing, No evidence of hallucinations/delusions noted Staff Interventions:: thought challenging, CBT techniques, strengths perspective, goal setting - Pt given homework to identify three schools she might want to attend by next session., other - provided emotional support and validation. Client Response:: Pt responded well to session, open to meeting with therapist. Pt became tearful and shared she is tired and feels overwhelmed by figuring out what is next in her life. Pt has officially withdrawn from [employer] and is trying to figure out if she wants to find a new school or take a semester off. Pt receptive to processing her emotions and emotional support. Pt came up with possible options such as going to a local school, taking time off, going to a school near her boyfriend, or moving out but taking time off from school. Pt shared multiple anxious thoughts she has about all the options. Pt receptive to thought challenging and reminding self of personal strengths. Pt's homework is to identify three schools she would be interested in attending. Risks/Concerns:: Pt denies any suicidal ideations, plan, or intent as of 08/06/21. No thoughts of . Progress Toward Goals/Plan:: Pt reports feeling down today, but pt's depression and anxiety are still improved from admission. Pt is tearful today and reports urges to isolate, but pt has been using healthy coping skills. Pt is currently processing the emotions associated with leaving her college and figuring out a new path in life. Pt denies any vomiting and has been able to cope with her somatic symptoms. Pt continues to experience racing, anxious thoughts and avoidance behaviors. Pt will continue IOP tx to promote use of healthy coping skills, reduce avoidance and anxiety, and improve self-confidence. Time Stopped:: 12:10
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
--- NOTE | 2021-08-10 11:05 | BH.SGPN.GN ---
Behaviors/Verbalizations/Mental Status: []Pt alert and oriented, neatly dressed and groomed. Eye contact good. Motor activity appropriate. Speech within normal limits. Affect constricted, mood dysthymic. Thoughts linear, logical, no signs of hallucinations or delusions. Client Response/Progress/Benefit: []Pt responded well to session AEB listening to group discussion and completing the resilience worksheet provided. Pt participated in the discussion of how each resiliency component can help increase personal resiliency. Pt identifying doing well with the resilience components of making connections, self-awareness, and moving toward her goals. Reflected on wanting to improve in the personal resilience component of nurturing a positive view of self. Pt stated she wants to work on this by starting an accomplishment log to acknowledge her progress. Pt seemed to benefit from discussing strategies for improving personal resilience. Will continue IOP tx to challenge negative self-talk, reduce avoidance, and increase self-compassion. Narrative Note: []
--- NOTE | 2021-08-11 09:08 | BH.SGPN.GN ---
Behaviors/Verbalizations/Mental Status: []Pt alert and oriented, neatly dressed and groomed. Eye contact good. Motor activity appropriate. Speech within normal limits. Affect constricted, mood hopeful. Thoughts linear, logical, no signs of hallucinations or delusions. Reviewed pt?s symptom tracker, no risk for suicidal ideation, plan, or intent as of 08/11/21 Client Response/Progress/Benefit: [] Pt responded well to session, attentive and providing supportive statements. Pt reports feeling hopeful this morning and pt reflected on her ability to bounce back from her stressors yesterday and over the weekend. 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 Pt also reflected on how her response to stressors has positively changed over the past two months. Pt continues to report reduced somatic symptoms and has not been getting sick when anxious. Pt also has been using healthy coping skills consistently. Pt appeared to benefit from reflecting on this. Pt's stressor today is that she needs to stop avoiding figuring out her next steps, but pt is anxious to fail again. Group normalized this and pt responded well. Pt will continue IOP tx to promote emotional regulation skills, combat distortions, and increase self-confidence. Narrative Note: []
--- NOTE | 2021-08-11 10:10 | BH.SGPN.GN ---
Behaviors/Verbalizations/Mental Status: []Eye contact is good. Motor activity is appropriate. Appearance is congruent. Speech is Appropriate. Mood is euthymic. Affect is full. Thoughts are linear and logical. No evidence of psychosis. Client Response/Progress/Benefit: []Pt was an active participant in group discussion and activity. Attentive during psychoeducation on social stigma vs self-stigma. Pt was actively involved in interactive discussion on the question of What impacts how we define and view ourselves? Pt along with peers were able to identify several aspects that impact how we view ourselves which include: society, past experiences, upbringing, guilt over past actions, shame, what we tell ourselves, and actions. Pt reported internal stigma is keeping her from finding a new college because she is afraid she will fail again. Stated mental health kept her from finishing school last time so having a hard time challenging negative thoughts she will fail again. Benefited from increased awareness of how mental health stigma can impact individuals and treatment. Plan is to continue in IOP to increase positive thinking, challenge distorted thoughts and prevent decompensation.
--- NOTE | 2021-08-13 09:00 | BH.SGPN.GN ---
Behaviors/Verbalizations/Mental Status: []Pt alert and oriented, casually dressed and groomed. Eye contact good. Motor activity appropriate. Speech within normal limits. Affect congruent, mood euthymic. Thoughts linear, logical, no signs of hallucinations or delusions. Reviewed pt?s symptom tracker, no risk for suicidal ideation, plan, or intent as of 08/13/21 Client Response/Progress/Benefit: [] Pt responded well to session, attentive and engaged. Pt reports feeling excited this morning as pt plans to spend time with a friend this evening and they are going to go out for dinner. Pt reflected on the progress she has made with her health anxiety as pt would have avoided going out to eat two months ago for fear of getting sick. Pt shared overall she is more confident in her ability to manage anxiety and she has been able to eat more. Pt's stressor is that she has to go to [employer] soon to get the rest of her things, but pt feels more confident than she did in the past. Pt appeared to benefit from reflecting on her progress. Pt will continue IOP tx to promote gains and further reduce anxiety symptoms. Narrative Note: []
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
--- NOTE | 2021-08-17 09:05 | BH.SGPN.GN ---
Behaviors/Verbalizations/Mental Status: [] Eye contact is good. Motor activity is appropriate. Appearance is casual. Speech is Appropriate. Mood is euthymic. Affect is full. Thoughts are linear and logical. No evidence of psychosis. Reviewed daily check in sheet and no reports of suicidal ideations or intent. Client Response/Progress/Benefit: [] Pt participated at times during the group discussions. Attentive. Provided appropriate feedback. Daily symptom tracker notes 03/28 for anxiety. Emotion for today is optimistic. Mental health wins include I completed a goals that I set with therapist which was to spend time with friends. She reports that she went out to dinner with a friend over the weekend. Discussed the mental health benefits of this and why this was set as a goal. Another mental health win included self-care in which she spent time watching movies with her family. Her check-in was minimal however reports that her anxiety continues to improve and she is feeling better. Progress noted per pt report. Benefited from group support and encouragement. Will continue in IOP to maintain gains and prevent decompensation. Narrative Note: []
--- NOTE | 2021-08-17 10:10 | BH.SGPN.GN ---
Behaviors/Verbalizations/Mental Status: []Client alert and oriented, casually dressed and groomed. Eye contact good. Motor activity appropriate. Speech within normal limits. Affect congruent, mood anxious, euthymic. Thoughts linear, logical, no signs of hallucinations or delusions. Client Response/Progress/Benefit: []Client responded well to session AEB taking notes. Participated in discussion of things that can keep people feeling trapped or stuck in life including; avoidance, unhealthy coping, isolation, inconsistent boundaries, and surrounding self with toxic people. Shared connecting with social anxiety and family struggles. Group discussed the connection between thoughts, emotions, and behaviors as well as how negative thinking can keep a person stuck. Client attentive during psychoeducation on maintenance cycles. Client able to identify negative thoughts that have kept client stuck which included ?Something bad will happen? Appeared to benefit from gaining awareness of how negative thoughts reinforce mental health symptoms and keep people stuck. Will continue IOP tx to prevent decompensation, increase anxiety management skills, and continue to combat distortions to improve overall functioning.
--- NOTE | 2021-08-17 11:15 | BH.SGPN.GN ---
Behaviors/Verbalizations/Mental Status: [] Client alert and oriented, casually dressed and groomed. Eye contact good. Motor activity appropriate. Speech within normal limits. Affect constricted, mood euthymic and anxious. Thoughts linear, logical, no signs of hallucinations or delusions. Client Response/Progress/Benefit: []Client responded well to session, contributing to discussion and providing supportive feedback. Client identified a negative thought that has kept her stuck that contributed to her presneing anxiety of fearing of failing. Client reported when she thinks this way she becomes scaredand isolate. Client worked to reframe the thought by finding more rational, realistic ways to look at the thoughts and then processed within group setting. Client reframed the thought to ?I cand do it. Client stated she will use positive self-talk to continue challenging negative self-talk. Client appeared to benefit from practicing challenging negative thinking. Client will continue IOP tx to promote use of healthy coping skills that will improve overall functioning. Narrative Note: []
--- NOTE | 2021-08-18 09:05 | BH.SGPN.GN ---
Behaviors/Verbalizations/Mental Status: [] Eye contact is good. Motor activity is appropriate. Appearance is casual. Speech is Appropriate. Mood is anxious/depressed. Affect is full. Thoughts are linear and logical. No evidence of psychosis. Reviewed daily check in sheet and no reports of suicidal ideations or intent. Client Response/Progress/Benefit: [] Pt participated at times during the group discussion. Attentive. Daily symptom tracker notes 04/25 for anxiety. Mental health win was completed self-care yesterday and going to bed early. She was tearful at times when discussing her anxiety stating I'm still feeling the anxiety when thinking about upcoming triggers and stressors such as returning to her college and trying perhaps re-enrolling in college. This triggers memories of her significant distress and she is fearful she will regress to that point again. She also talked at length regarding an upcoming camping trip with her BF's family. Everyone is drinking and their is pressure for me to drink. She does not wish to drink because it makes me sick and being sick makes me anxious. This anxiety and physial symptoms can last days after she drinks and she gave examples. Group provided some feedback and suggestions for discussing desire to remain sober to others and then provided support for her decision to make a healthy choice for herself. In the past she gave into the pressure to drink and felt miserable for several days. Progress noted per pt report. Will continue in IOP to maintain gains, prevent decompensation, and increase health coping skills. Narrative Note: []
--- NOTE | 2021-08-18 10:10 | BH.SGPN.GN ---
Behaviors/Verbalizations/Mental Status: []Pt alert and oriented, neatly dressed and groomed. Eye contact good. Motor activity appropriate. Speech within normal limits. Affect congruent, mood euthymic. Thoughts linear, logical, no signs of hallucinations or delusions. Client Response/Progress/Benefit: []Pt was an engaged participant AEB pt listening attentively to others. Attentive during psychoeducation on communication styles. Assisted group with identifying barriers of effective communication which included: ?dropping hints,? texting, assumptions, yelling, and hurtful language. Pt identified they most often use passive-aggressive communication. Pt reports being passive-aggressive impacts pt by increasing anxiety, negative thinking, and feeling frustrated with her supports. Benefited from increased awareness of different communication barriers, styles, and the importance of communicating effectively to improve mental wellness. Will continue IOP tx to improve communication with supports, further reduce anxiety, and increase self-confidence. Narrative Note: []
--- NOTE | 2021-08-20 09:05 | BH.SGPN.GN ---
Behaviors/Verbalizations/Mental Status: [] Eye contact is good. Motor activity is appropriate. Appearance is casual. Speech is Appropriate. Mood is euthymic. Affect is full. Thoughts are linear and logical. No evidence of psychosis. Reviewed daily check in sheet and no reports of suicidal ideations or intent. Client Response/Progress/Benefit: [] Pt was an active participant in group discussion. Attentive. Pt shared that she had been very anxious and ruminating on upcoming camping trip. This had led to somatic symptoms I started to feel nasuea which began to trigger thoughts that she was regressing back to how she was prior to IOP. My anxiety was causing me to convince myself I was getting sick. She was fearful that if she did not address this her symptoms would continue to decompensation. After talking with support she realized If camping is something I hate and causes anxiety I don't have to go. Assertively communicated with her BF who was understaging and she agreed to go to the event however only stay a few hours and not overnight. Her anxiety has since decreased and she does not feel ill. Proud of herself for being assertive and proactive. Normalized anxiety related to events that she did not enjoy. Progress noted per pt report. Benefited from group support, encouragement, and feedback. Will continue in IOP to prevent decompensation and maintain gains. Narrative Note: []
--- NOTE | 2021-08-20 10:20 | BH.SGPN.GN ---
Behaviors/Verbalizations/Mental Status: []Pt alert and oriented, casually dressed and groomed. Eye contact good. Motor activity appropriate. Speech within normal limits. Affect congruent, mood euthymic. Thoughts linear, logical, no signs of hallucinations or delusions. Client Response/Progress/Benefit: []Pt was an active participant in group discussion. Group worked together to identify benefits of healthy relationships which include; improves mental health, encouragement, motivation, accountability, validation, connection, someone to share experiences with, and personal growth. Group identified factors that lead to unhealthy relationships which included; co-dependence, lack of personal exploration, gaslighting, and blaming. Actively participated in group experiential activity and expressed her ideas to group. Benefited from increased insight and awareness of benefits of healthy relationships and factors that contribute to unhealthy relationships. Will continue in IOP to promote gains, further decrease anxiety, and increase confidence.? Narrative Note: []
--- NOTE | 2021-08-20 14:31 | BH.MDN_ITS ---
Multi-Disciplinary Note - Note 30-min Individual Time Started:: 11:30 Date: 08/20/21 Purpose of session/treatment goals addressed:: To address current stressors, symptoms, and application of coping skills. Another goal was to discuss aftercare options and pt's plan for the future. Eye Contact:: Good Motor Activity:: Appropriate Appearance:: Casual Speech:: Appropriate Mood:: Euthymic Affect:: Congruent Thoughts:: Linear, Logical, No evidence of hallucinations/delusions noted Staff Interventions:: thought challenging, CBT techniques, mindfulness skills, discharge planning, strengths perspective, goal setting Client Response:: Pt responded well to session, open to meeting with therapist. Pt shared she feels very relieved today after making the decision to not stay the night at a campground with her boyfriend and his family this weekend. Pt stated she asked herself if this was her anxiety wanting to cancel or just pt wanting to cancel. Pt recognized it was not because of anxiety and was able to set a healthy boundary. Pt also officially withdrew from [employer] which pt had been avoiding. Pt is still choosing between going to [employer] in the fall or taking a semester off. Pt acknowledged that whatever she decides to do, pt will have the ability to cope. Pt has been writing down her accomplishments and using opposite action. Pt is anxious about leaving IOP tx but feels that once a week counseling and aftercare group will be enough. Discussed coping skills pt can continue using to help with decision making that is not promoted by anxiety. Pt feels ready to discharge from [facility] next week. Risks/Concerns:: Pt denies any suicidal ideations, plan, or intent as of 08/20/21. No thoughts of . Progress Toward Goals/Plan:: Pt continues to demonstrate progress towards her individual goal AEB pt's report of withdrawing officially from [employer], setting boundaries with her boyfriend, and consistent report of managing her somatic symptoms. Pt reports overall feeling more confident in her abilities, reduced avoidance, and improved mood. Pt continues to worry about what choices she should make for the future, but this is not outside of normal development. Pt has not been sick for several weeks and when did get sick, it only lasted for a few hours. Pt will continue IOP tx for one more week to establish aftercare plan, reinforce healthy coping skills, and help pt transition to outpatient counseling. Time Stopped:: 11:50
== END 2021-08-20 23:59 ==
LOC: BHIOP 07:25
PROVIDERS: Referring Provider Psychiatry & Neurology Psychiatry; Visit Provider Psychiatry & Neurology Psychiatry
DX: F33.2 Major depressive disorder, recurrent severe without psychotic features (principal); F41.1 Generalized anxiety disorder; F45.1 Undifferentiated somatoform disorder; F12.99 Cannabis use, unspecified with unspecified cannabis-induced disorder; Z79.899 Other long term (current) drug therapy
CPT/HCPCS: S9480; 90832; 90834; 90853

== ENCOUNTER 2021-08-21 07:24 | Outpatient (RCR) | payer OTHER, SELFPAY ==
[2021-08-21 00:42] VITALS: BP 124/74; PULSE 61
--- NOTE | 2021-08-27 09:05 | BH.SGPN.GN ---
Behaviors/Verbalizations/Mental Status: [] Eye contact is good. Motor activity is appropriate. Appearance is casual. Speech is pressured. Mood is euthymic. Affect is full. Thoughts are linear and logical. No evidence of psychosis. Reviewed daily check in sheet and no reports of suicidal ideations or intent. Client Response/Progress/Benefit: [] Pt was an active participant in group discussion. Attentive. Provided appropriate feedback. Mental health win was I got sick and I didn't let it hold me back. Pt reports that in the recent past if she felt ill or had any somatic symptoms her anxiety would escalate and lead to panic, rumination, isolation, and feeling ill for self days. States my thoughts would shut me down. She shared that she had eaten something which upset her stomach, however was able to challenge her thoughts, identify that she was catastrophizing, and then utilize skills to manage her thoughts. She also managed to tackle an anxiety trigger by driving to [place] and packing up some of her belongings. Briefly discussed how her being back in that city and house was triggering for her. She has plans for her future however is nervous about being discharged from [facility] this week. Progress noted per pt report. Benefited from group support, encouragement, and feedback. Will continue in [facility] to maintain gains. Narrative Note: []
--- NOTE | 2021-08-27 10:20 | BH.SGPN.GN ---
Behaviors/Verbalizations/Mental Status: [] Eye contact is good. Motor activity is appropriate. Appearance is casual. Speech is Appropriate. Mood is euthymic. Affect is full. Thoughts are linear and logical. No evidence of psychosis. Client Response/Progress/Benefit: [] Pt was an active participant in group discussion. Attentive during psychoeducation on Problem-Solving in the Moment Protocol. Participated in group experiential activity. Pt provided feedback during interactive group discussion in which pt and peers worked through an example of a problem (Managing Anxiety) in which they identified a goal (minimizing anxiety) and identified barriers. Barriers identified included lack of awareness, mental health stigma, distorted thinking, not having the tools/resources, and being afraid to fail. During the experiential activity pt worked with peers to problem solve using the Problem Solving in the Moment Protocol. Group was able to complete the activity and pt was able to practice in the moment problem-solving and make connections between problem-solving for activity and in real-life situations. Increased awareness of problem-solving strategies. Will continue in IOP to maintain gains, prevent decompensation, and decrease impact of anxiety on functioning. Narrative Note: []
--- NOTE | 2021-08-27 11:20 | BH.SGPN.GN ---
Behaviors/Verbalizations/Mental Status: []Pt alert and oriented, casual dress, hygiene tended to. Eye contact good. Motor activity WNL. Speech appropriate rate and tone. Affect congruent, mood anxious and euthymic. Thoughts linear, logical, no signs of hallucinations or delusions. Client Response/Progress/Benefit: []?Pt engaged in session as evidenced by pt listening to others and providing input throughout. Pt practiced in the activity and expressed feeling frustration and anxious, but pt was able to cope by listening and problem-solving with peers. Pt identified a goal pt wants to work on which is to figure out if pt wants to take a break or return to school. Pt?s barriers included being afraid to ?mess up? again and fear of feeling alone. Pt also identified steps she could take such as exploring [employer] training and looking up alternative options. Pt seemed to benefit from learning about problem solving method and rehearsing problem-solving skills in the moment. Pt to discharge from [facility] tx tomorrow as pt has made significant progress but pt can benefit from one more day to reinforce healthy coping skills and provide closure. Narrative Note: []
--- NOTE | 2021-08-28 08:41 | BH.AFTERPLAN ---
Aftercare Plan - Demographics Treatment End Date:: 08/28/21 Psychiatrist:: Yeimy Mendiola Psychiatrist Office #:: [phone] [facility] Therapist:: Charline Redmond Therapist Phone #:: [phone] - Plan Details Progress/Aftercare Plan Details:: Jaylin has made significant strides since starting IOP as shown by her improved mood, reduced physical symptoms, and increased ability to sit with uncomfortable feelings to manage anxiety. When Jaylin started IOP she was experiencing significant anxiety and was struggling to overcome the physical symptoms with her anxiety. Jaylin was struggling with anxious, health-related thoughts, avoidance, negative thinking, depression, and physical issues. Now, Jaylin can catch and manage thoughts that reinforced anxiety and physical illness, use healthy coping skills more easily, and she feels more confident in her abilities. Jaylin has been able to get back to eating regularly, spend time with supports and go out, and face challenges she had been avoiding. Jaylin was highly active in both group and individual therapy sessions. Jaylin contributed to group discussions, offered emotional support to peers, and consistently followed through with her goals. In individual sessions, Jaylin was receptive to feedback, consistent with homework, and willing to push herself despite anxiety. Jaylin?s high motivation, willingness to be uncomfortable, and joyful personality were likely the reason for her significant progress. Jaylin plans to attend [facility] aftercare as well as follow up with her outpatient providers. Strategies for Success:: 1. Opposite action! Continue to break that cycle of anxiety and depression by getting up and getting going. 2. Remember that thoughts are thoughts NOT facts! You have power in if you give thoughts the time of day or not. 3. self-care! You deserve to take time for you and you also deserve to face the not so fun self-care 4. Self-compassion! You are human and you will make mistake?BUT that doesn?t mean you are a failure or not good enough. Give yourself credit for all the wonderful things you do. 5. Unplug! Get in nature and practice that mindfulness. 6. Practicing deep breathing, calming self-talk, and meditation 7. Practice positive self-talk and keep track of your wins. 8. Remember progress isn?t linear! You may have a setback or bump in the road, but that doesn?t mean you?ve lost all progress. 9. Slow down. Be aware and use opposite action to push yourself to slow the pace when you feel a sense of urgency. 10. Continue to practice assertive communication. - Appointments Appointments/Referrals to Other Services:: 1. Dr. Molina for medication management. 2. [facility] for individual therapy. 3. IOP aftercare starting 09/10/21 - Medications Home Medications: Home Medications clonazepam 0.5 mg tablet (Klonopin) 0.25 mg PO BID 07/08/21 gabapentin 100 mg capsule 200 mg PO DAILY 07/08/21 hydroxyzine HCl 10 mg tablet 20 mg PO BID 07/08/21 hydroxyzine HCl 50 mg tablet 50 mg PO BID 07/08/21 melatonin 5 mg capsule 5 mg PO QHS PRN PRN Insomnia 07/08/21
--- NOTE | 2021-08-28 09:05 | BH.SGPN.GN ---
Behaviors/Verbalizations/Mental Status: [] Eye contact is good. Motor activity is appropriate. Appearance is casual. Speech is Appropriate. Mood is euthymic. Affect is full. Thoughts are linear and logical. No evidence of psychosis. Reviewed daily check in sheet and no reports of suicidal ideations or intent. Client Response/Progress/Benefit: [] Pt was an active participant in group discussion. Attentive. Provided appropriate feedback. Daily symptom trackers noted no significant distress. Pt shared with the group that today is her last day in the IOP program. Discussed her progress stating my anxiety is not causing so much distress in my life. When I started I had no coping skills and wasn't functioning as a person. She shared with the group her struggles prior to entering [facility] and her current functioning. Insight that she still has work to do but is happy about her progress. She has plans to return to [employer] this weekend to finish packing her belongings to bring back to her parent's house. She briefly shared how [place] is a significant trigger for her and reminds her of being in significant emotional and physical distress. Progress noted per pt report. Plan is to discharge from [facility] today. Narrative Note: []
--- NOTE | 2021-08-28 10:15 | BH.SGPN.GN ---
Behaviors/Verbalizations/Mental Status: []Eye contact is good. Motor activity is appropriate. Appearance is casual. Speech is Appropriate. Mood is euthymic. Affect is congruent. Thoughts are linear and logical. No evidence of psychosis. Client Response/Progress/Benefit: []Pt was an active participant in group discussion and activity. Attentive during psychoeducation on the stages of change. Pt participated in interactive discussion on emotions associated with change (happy, anxious, proud, shocked, surprised, guilty, etc). Pt along with peers identified barriers that may prevent one from making change such as ?fear of regression? and fear of failure. Pt shared how she had to overcome these fears to come to [facility] and she is thankful she did. Group able to identify the benefits to changes such as acceptance, patience, self-awareness, and personal growth. Benefited from increased awareness of emotions related to change, the change process, and benefits/barriers to change. Will discharge from IOP tx today as pt has accomplished treatment goals and no longer meets criteria for IOP level of care. Narrative Note: []
--- NOTE | 2021-08-28 15:07 | BH.MDN ---
Multi-Disciplinary Note - Note 30-min Individual Time Started:: 11:15 Date: 08/28/21 Purpose of session/treatment goals addressed:: To address current stressors and discuss strategies to help cope with these stressors. Another goal was to discuss discharge and aftercare. Eye Contact:: Good Motor Activity:: Appropriate Appearance:: Casual Speech:: Appropriate Mood:: Euthymic Affect:: Congruent Thoughts:: Linear, Logical, No evidence of hallucinations/delusions noted Staff Interventions:: thought challenging, discharge planning, strengths perspective Client Response:: Pt responded well to session, open to meeting with therapist. Pt reports feeling ready to discharge, but pt is nervous and sad to be leaving. Pt reflected on her progress and shared she has been able to regularly eat, does not catastrophize when she gets nauseous anymore, go back to [facility] to get her things, and spend time with friends out in public. Pt stated she very rarely gets sick now and when she does, it only lasts a few hours rather than days. Pt also has improved in setting boundaries, advocating for herself, and using thought challenging skills. Pt reports feeling anxious that her outpatient therapist only wants to be once a month because I'm doing so well. Encouraged pt to express these feelings with therapist and advocate for twice a month. Pt reviewed healthy coping skills and pt plans to attend [facility] aftercare. Risks/Concerns:: Pt denies any suicidal ideations, plan, or intent. No thoughts of . Progress Toward Goals/Plan:: Pt will discharge from IOP tx today as pt has made significant progress and accomplished her tx goals. Pt's DSM-5 scores decreased by 68% since admission and pt reports very rarely getting sick from anxiety now. Pt has been able to return to her normal functioning, eating regularly, and spending time with friends instead of isolating. Time Stopped:: 11:31
--- NOTE | 2021-08-28 15:08 | BH.DS_ITS ---
Discharge Summary - Demographics Date of Admission:: 07/06/21 Discharge Date: 08/28/21 Presenting Problems at Admission:: Pt is a 20-year-old female with a history of ANA and MDD. Pt was referred to IOP by her outpatient providers at [place] [id number] due to worsening anxiety and depressive symptoms that have been impacting pt's functioning. Pt had to return home from college at [employer] due to mental health symptoms. Pt primarily reported somatic symptoms such as nausea and vomiting due to anxiety and panic. Pt also endorsed poor sleep, reduced concentration, and pt wakes up in the morning with somatic symptoms. Pt reported missing weeks of class due to her symptoms and shared she does better when she is around her boyfriend. Pt has had multiple doctors visits and tests with no diagnosis for physical symptoms. Pt endorsed hopelessness, helplessness, anhedonia, crying spe lls, rumination, and passive thoughts of due to her anxiety symptoms. Pt reported her anxiety was worse in the mornings and this often led to isolation for fear that she will get sick out in public. Pt admits to frequent marijuana use, but pt denies this makes her vomiting worse. Pt's symptoms were impacting her overall functioning at admission. Discharge Diagnoses:: Major depressive disorder, recurrent, severe without psychosis F 33.2; Generalized anxiety disorder; Somatic symptom disorder, persistent (F45.1); Marijuana use disorder Reason for Discharge:: Pt has accomplished her tx goals AEB her overall symptom reduction and self-report of improved mood, functioning, and reduced somatic symptoms. Pt no longer meets criteria for IOP level of care and will continue with outpatient counseling. - Treatment Progress During Treatment & Response: Pt has made significant strides since starting IOP as shown by her improved mood, reduced physical symptoms, and increased ability to sit with uncomfortable feelings to manage anxiety. When Pt started IOP she was experiencing significant anxiety and was struggling to overcome the physical symptoms with her anxiety. Pt was struggling with anxious, health-related thoughts, avoidance, negative thinking, depression, and physical issues. Now, Pt can catch and manage thoughts that reinforced anxiety and physical illness, use healthy coping skills more easily, and she feels more confident in her abilities. Pt has been able to get back to eating regularly, spend time with supports and go out, and face challenges she had been avoiding. Pt was highly active in both group and individual therapy sessions. Pt contributed to group discussions, offered emotional support to peers, and consistently followed through with her goals. Pt?s overall DSM-5 scores decreased by 68%, depression decreased by 50%, and anxiety decreased by 67%. Issues Still to be Addressed:: ongoing anxiety management to maintain gains, self-confidence, negative self-talk, and distress tolerance skills. Discharge Recommendations/Instructions:: Pt will follow up with Dr. Molina at [place] [address] for medication management. Pt's next appointment is 09/17/21. Pt also sees Di Meza at [place] [address] for individual therapy and pt's next appointment is in September. Pt will start IOP aftercare on 09/10/21 Discharge Handout: Complete Discharge Handout with client on aftercare options and continuity of care.
== END 2021-08-28 12:35 | disposition home or self-care (01) ==
LOC: BHIOP 07:24
PROVIDERS: Referring Provider Psychiatry & Neurology Psychiatry; Visit Provider Psychiatry & Neurology Psychiatry
DX: F33.2 Major depressive disorder, recurrent severe without psychotic features (principal); F41.1 Generalized anxiety disorder; F45.1 Undifferentiated somatoform disorder; F12.99 Cannabis use, unspecified with unspecified cannabis-induced disorder; Z79.899 Other long term (current) drug therapy
CPT/HCPCS: S9480; 90832; 90853

== ENCOUNTER 2021-09-10 08:00 | Outpatient (RCR) | payer OTHER, SELFPAY ==
--- NOTE | 2021-09-10 10:55 | BH.MTP ---
[facility] Treatment Plan - Patient Information Program Physician:: Dr. Yeimy Mendiola Primary Therapist:: Charline LEWIS - Psychiatric Diagnoses Psychiatric Diagnoses:: Major depressive disorder, recurrent, severe without psychosis F 33.2; Generalized anxiety disorder; Somatic symptom disorder, persistent (F45.1); Marijuana use disorder Diagnosis Code(s):: F 33.2; F45.1 - Estimated LOS Estimated LOS (in weeks):: 8 Problem/Goal #1 - Problem/Goal #1 Stated Goal:: client will maintain or see a reduction in symptoms AEB client score on the DSM 5 cross-cutting measure and improve client's daily functioning. - Objectives Objective #1 Stated Objective: Client will continue to consistently apply healthy coping skills to maintain progress made in IOP tx. Interventions: Through group therapy, client will review warning signs and triggers as well as healthy coping skills learned in IOP tx to successfully maintain gains while transitioning into outpatient therapy. Discharge Criteria: Client will have accomplished this goal when client's score on the DSM-5 cross-cutting measure has maintained or reduced over a 8 week period. Target Date: 11/05/21 Review Date: 10/08/21 Status: open Objective #2 Stated Objective: Client will learn and utilize 2-3 maintenance strategies to prevent decompensation from original IOP DSM-5 scores. Interventions: Through group therapy, client will be provided with education on healthy maintenance behaviors, relapse prevention techniques, and healthy coping strategies. Discharge Criteria: Client will have accomplished this goal when can report using at least 2 maintenance skills to prevent decompensation compared to original IOP DSM-5 scores Target Date: 11/05/21 Review Date: 10/08/21 Status: open
--- NOTE | 2021-09-10 14:00 | BH.SGPN.GN ---
Behaviors/Verbalizations/Mental Status: []Pt alert and oriented, casually dressed and groomed. Eye contact good. Motor activity appropriate. Speech within normal limits. Affect congruent. Mood anxious. Thoughts linear, logical, no signs of hallucinations or delusions. Client Response/Progress/Benefit: []Pt responded well to session, attentive and engaged. Pt reports she did not have appointments this week with her therapist or psychiatrist. Pt has been taking her medications consistently. Pt reports she has been using coping skills such as journaling, thought challenging, and sitting with the uncomfortable to help cope with her recent anxiety symptoms. Pt responded well to the discussion of gratitude and the benefits to mental health and relationships. Pt wrote herself a letter to express internal gratitude and pt identified different things to focus on each day for the next 7 days to practice gratitude towards self and others. 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 Pt recommended ongoing IOP aftercare to promote gains made in IOP and reinforce healthy coping skills. Narrative Note: []
--- NOTE | 2021-09-10 14:00 | BH.COMM ---
Communication Note - Communication with Client Communication Note: Pt presented to start weekly aftercare program. Recently completed IOP level of care. Consulted with Dr. Orozco with plan to admit to aftercare with dx of F33.2
--- NOTE | 2021-09-17 14:00 | BH.SGPN.GN ---
Behaviors/Verbalizations/Mental Status: []Client alert and oriented, casually dressed and groomed. Eye contact good. Motor activity appropriate. Speech within normal limits. Affect congruent, mood euthymic. Thoughts linear, logical, no signs of hallucinations or delusions. Client Response/Progress/Benefit: []Client responded well to session AEB sharing thoughts and feelings and providing feedback throughout. Client stated she will see psychiatry next week and is taking medications consistently. Client reported randomly while babysitting she threw up out of nowhere. Client stated she has had increase of being worried she is going to get sick because its been more frequent lately. Client reported using opposite action and thought challenge as skills/strategies to help herself manage anxious thoughts. Client stated she did homework from last week of identifying daily gratitude which she found to be helpful. Contributed to strategies for improving effective creation and application of believable personal affirmations. Client wrote down three affirmation statements she will say to herself everyday and evaluate effectiveness next week at aftercare group. Client to continue aftercare group to promote gains and further increase application of healthy coping skills.
== END 2021-09-20 23:59 ==
LOC: BHOG 08:00
PROVIDERS: Referring Provider Psychiatry & Neurology Psychiatry; Visit Provider Psychiatry & Neurology Psychiatry
DX: F33.2 Major depressive disorder, recurrent severe without psychotic features (principal)
CPT/HCPCS: 90853

== ENCOUNTER 2021-09-21 07:40 | Outpatient (RCR) | payer OTHER, SELFPAY ==
--- NOTE | 2021-09-24 14:00 | BH.SGPN.GN ---
Behaviors/Verbalizations/Mental Status: []Client alert and oriented, casually dressed and groomed. Eye contact good. Motor activity appropriate. Speech within normal limits. Affect congruent. Mood euthymic. Thoughts linear, logical, no signs of hallucinations or delusions. Client Response/Progress/Benefit: []Client responded well to session AEB listening attentively to others and contributing to discussion at times. Client reported has been following through with seeing outpatient providers and taking medications. Client reported used thought challenge over last week when felt sick. Stated she did not get sick in last week. Client attentive and engaged in discussion about personal values. Client worked with group to identify benefits of knowing personal values and how mental health can negatively be impacted when actions are not congruent with personal values. Client identified her top three personal values include: physical wellbeing, family/friends, and mental health. Able to identify several activities can engage in to meet those identified values. Client seemed to benefit from increased awareness of personal values and identifying steps can take to ensure actions are meeting her values. Client to continue aftercare to maintain gains and prevent decompensation.
--- NOTE | 2021-10-01 14:00 | BH.SGPN.GN ---
Behaviors/Verbalizations/Mental Status: []Pt alert and oriented, casually dressed and groomed. Eye contact good. Motor activity appropriate. Speech within normal limits. Affect constricted-tearful, mood anxious and frustrated. Thoughts linear, logical, no signs of hallucinations or delusions. Client Response/Progress/Benefit: [] Pt receptive of session, engaged throughout. Pt shared she has been taking her meds, she recently saw her psychiatrist, and she has been journaling. Pt has been trying to find a new therapist who will see her more than every other month, but pt is not having any luck. Pt became tearful and the group offered her support and ideas.?Receptive of discussion on sitting with the uncomfortable and emotional urges. Pt contributed to the discussion of distress tolerance and how building distress tolerance can help improve mood stability and resilience. Pt selected advocating for herself again about getting a new therapist and calling a new agency as the situation that would make pt uncomfortable. Pt will use self-talk to help do this. Pt seemed to benefit from support from peers and increasing understanding of distress tolerance. Will continue IOP aftercare group to maintain gains and reinforce healthy coping skills.? Narrative Note: []
--- NOTE | 2021-10-01 16:48 | BH.TPR ---
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 Pt uses IOP aftercare to process current stressors and is receptive to feedback. Status of Current Problems and Symptoms: Ongoing stressors include babysitting, trying to get a new therapist, and trying to maintain progress. Symptoms of anxiety and depression are present, but less severe than they were when pt started IOP. Pt was tearful today as pt is trying to advocate for herself, but she is not getting the help she is seeking. Pt is also self-reporting increase in smoking marijuana which could impact pt's mood stability. Problem #1 Problem Name:: Pt will maintain or see a reduction in sx Status of Goals:: Obj 1 complete with ongoing work encouraged- Pt has been able to maintain gains made in IOP as pt?s DSM-5 scores are 45% lower than they were at IOP admission. Based on pt's self-report she has been struggling with irritability this past week, but she continues to think positively and work on her skills. Obj 2 - complete with ongoing work encouraged. Pt has been consistently reporting using self-talk, journaling, and advocating for herself. Team Recommendations:: Recommended client continue IOP aftercare group in addition to attending regular outpatient counseling in order to maintain gains.
--- NOTE | 2021-10-15 14:00 | BH.SGPN.GN ---
Behaviors/Verbalizations/Mental Status: []Pt alert and oriented, casually dressed. Eye contact good. Motor activity appropriate. Speech within normal limits. Affect constricted at times but also smiling, mood anxious and sad. Thoughts linear, logical, no signs of hallucinations or delusions. Client Response/Progress/Benefit: []Pt responded well to session, engaged and providing emotional support. Pt checked in using aftercare worksheet and pt reports they have been following up with psychiatry, taking her medications as prescribed, and started with a new therapist today. Pt was tearful and shared this time of year is really hard for pt because everyone around me is going back to school and growing and I'm not. Pt receptive to emotional support and validation from group and pt able to see ways she can challenge negative self-talk and expectations. Pt has been using coping skills such as thought challenging and reaching out to healthy supports. Pt participated in the discussion of self-love and how one can increase this. Pt reported comparing herself to others makes it difficult to love herself and accept her situations. Pt selected strategies to improve self-love and shared this week pt is going to work on allowing herself to grieve the loss of what she expected her life to be at this age. Pt appeared to benefit from increasing skills to build self-love. Pt will continue IOP aftercare to prevent decompensation, maintain structure and support, and challenge negative thinking. Narrative Note: []
== END 2021-10-21 23:59 ==
LOC: BHOG 07:40
PROVIDERS: Referring Provider Psychiatry & Neurology Psychiatry; Visit Provider Psychiatry & Neurology Psychiatry
DX: F33.2 Major depressive disorder, recurrent severe without psychotic features (principal); F41.1 Generalized anxiety disorder; F45.1 Undifferentiated somatoform disorder; F12.99 Cannabis use, unspecified with unspecified cannabis-induced disorder
CPT/HCPCS: 90853

== ENCOUNTER 2021-10-22 07:39 | Outpatient (RCR) | payer OTHER, SELFPAY ==
--- NOTE | 2021-10-22 14:00 | BH.SGPN.GN ---
Behaviors/Verbalizations/Mental Status: []Pt alert and oriented, casually dressed and groomed. Eye contact good. Motor activity appropriate. Speech within normal limits. Affect congruent, mood euthymic and slightly anxious. Thoughts linear, logical, no signs of hallucinations or delusions. Client Response/Progress/Benefit: []Pt responded well to session, Pt reports she has been taking her medication consistently, seeing her therapist, and seeing her psychiatrist. Pt stated she is finding her new therapist to be helpful which reduces anxiety. Pt reports she is doing better this week than last week as pt allowed herself to ?be sad but not live there.? Pt has been writing, setting boundaries with herself, and scheduling time with supports. Pt engaged well during the discussion of the components of self-compassion. Pt connected with the benefits of self-compassion and participated in the activity of reframing a recent setback using self-compassion. Pt used the negative thinking she had about not going back to college and used the three pillars of self-compassion. Pt able to practice self-kindness and reminded herself that she is on her own path and she needs time to heal. Pt appeared to benefit from practicing self-compassion and connecting with peers. Will continue aftercare to promote mood stability and reinforce healthy coping skills. Narrative Note: []
--- NOTE | 2021-11-05 14:00 | BH.SGPN.GN ---
Behaviors/Verbalizations/Mental Status: []Pt alert and oriented, casually dressed and groomed. Eye contact good. Motor activity appropriate. Speech within normal limits. Affect congruent to topics discussed-tearful, mood hurt and sad. Thoughts linear, logical, no signs of hallucinations or delusions. Client Response/Progress/Benefit: []Pt responded well to session, completed weekly check-in. Pt saw her psychiatrist this week and is taking her medications, but pt did not have an appointment with her therapist. Pt shared she has been feeling depressed and hurt because of recent news, so pt has been allowing herself to process and feel her emotions. Pt receptive to group emotional support and feedback. Contributing during discussion of vulnerability and benefits of practicing vulnerability. Shared personal experience of the benefits of vulnerability. Discussed ways we avoid feeling vulnerable and how this negatively affects mental health and relationships. Pt shared she wants to work on being vulnerable by talking to her dad about how hurt she is. Appeared to benefit from reflecting on the positive impact vulnerability can have on mental health. Will continue IOP aftercare to promote gains and reinforce healthy coping skills. Narrative Note: []
--- NOTE | 2021-11-12 13:55 | BH.SGPN.GN ---
Behaviors/Verbalizations/Mental Status: []Client alert and oriented, casual in appearance. Eye contact fair to good.? Motor activity appropriate. Speech within normal limits. Affect congruent. Mood euthymic. Thoughts linear, logical, no signs of hallucinations or delusions Client Response/Progress/Benefit: []Pt responded well to session AEB providing input throughout and listening attentively to others. Pt reported mental health positive as continuing with her regular routine despite feeling sick over the weekend. Reports she did not allow her symptoms to negatively impact anxiety levels. Pt reported she has been able to managing anxiety and stressors more effectively and is using deep breathing and positive self-talk in order to do so. Pt stated she is still attending her outpatient counseling weekly. Pt identified current stressor as a recent conversation with her father regarding concerns about her sister. Pt connected with self-reflection discussion and activity. Worked with group to identify the benefits of self-reflection. Seemed to benefit from identifying how to incorporate self-reflection into life more often. Agreeable to complete homework of reflecting on progress in aftercare as well as reports self-reflection goal of completing a daily body-scan and ?check-in? with herself. Pt to continue aftercare to maintain gains and prevent decompensation. Narrative Note: []
--- NOTE | 2021-11-12 15:04 | BH.DS_ITS ---
Discharge Summary - Demographics Date of Admission:: 09/10/21 Discharge Date: 11/12/21 Presenting Problems at Admission:: Pt discharged from IOP tx and transitioned to IOP aftercare to maintain gains pt made in IOP and to reinforce healthy coping skills. At admission to IOP aftercare, pt continued to report symptoms of depression, anxiety, and worries about the future. Pt also was experiencing stressors with babysitting, relationship with her father, and self-worth. 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 Pt's DSM-5 scores decreased by an additional 39% from IOP admission. Pt will transition to traditional outpatient counseling. - Treatment Progress During Treatment & Response: Pt responded well and made progress in IOP aftercare as evidenced by pt's participation in group discussions and self- report of consistently applying coping skills. Pt's overall DSM-5 scores decreased by 39% from IOP admission. Pt?s depression decreased by 57% since original IOP admission and pt's scores for anxiety decreased by 33% compared to original IOP scores. Additionally, at discharge Pt was reporting consistently seeing her therapist, using healthy coping skills, and communicating with supports. Pt still has symptoms and stressors that need resolved and processed, but pt reports overall increased ability to cope. Issues Still to be Addressed:: Processing childhood trauma, setting boundaries, increasing self-compassion, and support in identifying and coping with next steps in life (career/school). Discharge Recommendations/Instructions:: Pt will continue seeing her outpatient provider, Dr. Molina, at [place] [id number] for medication management. Pt also sees Deborah Carter at [facility] for individual counseling. Discharge Handout: Complete Discharge Handout with client on aftercare options and continuity of care.
== END 2021-11-13 07:55 | disposition home or self-care (01) ==
LOC: BHOG 07:39
PROVIDERS: Referring Provider Psychiatry & Neurology Psychiatry; Visit Provider Psychiatry & Neurology Psychiatry
DX: F33.2 Major depressive disorder, recurrent severe without psychotic features (principal); F41.1 Generalized anxiety disorder; F45.1 Undifferentiated somatoform disorder; F12.90 Cannabis use, unspecified, uncomplicated
CPT/HCPCS: 90853

== ENCOUNTER → 2021-11-18 | Outpatient (CLI) | payer OTHER, SELFPAY ==
[2021-11-18 11:30] LABS: Lyme Ab Screen Interpretation REF LAB
[2021-11-18 12:41] LABS: Absolute Lymphocyte Count 1.42 X10^3/uL (0.83-4.51); Absolute Neutrophil Count 3.9 X10^3/uL (2.0-7.7); Basophil# 0.06 X10^3/uL; Eosinophil# 0.08 X10^3/uL; Eosinophils% 1.4 % (0-5); Hemoglobin 14.4 g/dL (12.0-15.0); Lymphocyte # 1.42 X10^3/ul (0.83-4.51); Lymphocyte % 24.3 % (19-41); Mean Corp Hgb Conc 33.5 g/dL (32-36); Mean Corpuscular Hgb 30.1 pg (27.0-32.0); Monocyte# 0.38 X10^3/uL; Monocyte% 6.5 % (0-10); NRBC Flagged by Analyzer 0 % (0-5); Neutrophil # 3.89 X10^3/uL (2.7-7.7); Neutrophil % 66.5 % (47-70); Platelet Count 364 K/mm3 (150-450); RBC Distribution Width CV 12.9 % (11.6-14.6); Red Blood Count 4.78 M/mm3 (4.2-5.4); White Blood Count 5.9 K/mm3 (4.4-11.0)
[2021-11-18 13:21] LABS: Vitamin B12 242 pg/mL (211-911); Vitamin D,25 Hydroxy 24.1 ng/mL
[2021-11-18 13:29] LABS: ALB/GLOB Ratio 1.2 RATIO (0.9-2.4); AST(SGOT) 14 U/L (15-37); Alanine Aminotransfer ALT/SGPT 24 U/L (13-56); Alkaline Phosphatase 56 U/L (45-117); Anion Gap 4 (5-15); BUN 11 mg/dL (7-18); BUN/Creat Ratio 13.3 RATIO (10-20); CRP < 2.90 mg/L (0.0-3.0); Calcium,Total 9.5 mg/dL (8.5-10.1); Chloride 108 mmol/L (98-107); Cholesterol 204 mg/dL (200); Creatinine, Serum 0.82 mg/dL (0.55-1.02); EST Glomerular Filtration Rate 93 mL/min (>60); Est Glom Filt Rate - Afr Amer 112 mL/min (>60); Ferritin 32 ng/mL (8-252); Free T3 3.3 pg/mL (2.18-3.98); Globulin 3.3 g/dL (2.2-4.2); Glucose 90 mg/dL (74-106); High Density Lipoprotein 64 mg/dL; Iron 88 ug/dL (50-170); Potassium 3.8 mmol/L (3.5-5.1); Protein, Total 7.3 g/dL (6.4-8.2); Sodium Level 140 mmol/L (136-145); T4 Free Direct 1.02 ng/dL (0.76-1.46); Thyroid Stim Hormone (TSH) 0.95 uIU/mL (0.358-3.74); Triglycerides 68 mg/dL; Very Low Density Lipoprotein 14 mg/dL (5-40)
[2021-11-25 04:06] LABS: Almond <0.10 kU/L (Class 0); Banana <0.10 kU/L (Class 0); Barley, Whole Grain <0.10 kU/L (Class 0); Beef <0.10 kU/L (Class 0); Carrot <0.10 kU/L (Class 0); Casein <0.10 kU/L (Class 0); Cashew <0.10 kU/L (Class 0); Celery <0.10 kU/L (Class 0); Cheddar Cheese <0.10 kU/L (Class 0); Chicken <0.10 kU/L (Class 0); Chocolate <0.10 kU/L (Class 0); Clam <0.10 kU/L (Class 0); Codfish <0.10 kU/L (Class 0); Corn <0.10 kU/L (Class 0); Crab <0.10 kU/L (Class 0); Egg, White <0.10 kU/L (Class 0); Egg, Whole <0.10 kU/L (Class 0); Egg, Yolk <0.10 kU/L (Class 0); Garlic <0.10 kU/L (Class 0); Gluten <0.10 kU/L (Class 0); Hazelnut/Filbert <0.10 kU/L (Class 0); Lettuce <0.10 kU/L (Class 0); Lobster <0.10 kU/L (Class 0); Milk (Cow) <0.10 kU/L (Class 0); Oat <0.10 kU/L (Class 0); Onion <0.10 kU/L (Class 0); Orange <0.10 kU/L (Class 0); Pea <0.10 kU/L (Class 0); Peach <0.10 kU/L (Class 0); Pecan <0.10 kU/L (Class 0); Pork <0.10 kU/L (Class 0); Potato, White <0.10 kU/L (Class 0); Rice <0.10 kU/L (Class 0); Rye <0.10 kU/L (Class 0); Salmon <0.10 kU/L (Class 0); Shrimp <0.10 kU/L (Class 0); Soybean <0.10 kU/L (Class 0); Strawberry <0.10 kU/L (Class 0); Tomato <0.10 kU/L (Class 0); Tuna <0.10 kU/L (Class 0); Walnut, (Food) <0.10 kU/L (Class 0); Wheat <0.10 kU/L (Class 0); Yeast <0.10 kU/L (Class 0)
[2021-11-25 16:28] LABS: Apple <0.10 kU/L (Class 0); Peanut <0.10 kU/L (Class 0)
[2021-11-25 16:29] LABS: Lactalbumin, Alpha <0.10 kU/L (Class 0); Turkey <0.10 kU/L (Class 0)
== END | disposition home or self-care (01) ==
PROVIDERS: PCP Nurse Practitioner Family; Referring Provider Nurse Practitioner Family; Visit Provider Nurse Practitioner Family
DX: R19.7 Diarrhea, unspecified (principal); R53.83 Other fatigue; R68.89 Other general symptoms and signs; L65.9 Nonscarring hair loss, unspecified; N92.0 Excessive and frequent menstruation with regular cycle; R11.10 Vomiting, unspecified
CPT/HCPCS: 36415; 80053; 80061; 82306; 82607; 82728; 82784; 83516; 83540; 83735; 84439; 84443; 84466; 84481; 85025; 86003; 86140; 86255; 86376; 86618; 86800